=== PATIENT | female | born 1985 | race African-American/Black ===

== ENCOUNTER 2016-06-04 19:38 | Emergency (ER) | payer BC, OTHER ==
[~2016-06-04] VITALS: Ht 167.6 cm; Wt 113.6 kg
[~2016-06-04 19:38] MED LIST: ATIVAN 0.50.5 MG/TAB PO; CELEXA 20MG20 MG/TAB PO; DEPRESSION MED; DESYREL 100MG100 MG PO; INDERAL 10MG10 MG PO; KLONOPIN 0.5MG0.5 MG PO; LORTAB 5/500 501 TAB PO; MOTRIN 600600 MG/TAB PO; NASONEX SPRAY17 GM NS; NORCO 325 MG-51 TAB PO; PRENATAL; VALTREX 50500 MG/TAB PO; ZANTAC 150MG T150 MG PO
[2016-06-04 19:41] VITALS: TEMP 98.2
[2016-06-04] MEDS ORDERED: JUNEL 1.5 MG-31 EACH PO (19:44)
[2016-06-04] MEDS ORDERED: ZOLOFT 100MG100 MG PO (19:45)
[2016-06-04] MEDS ORDERED: KLONOPIN 1MG1 MG PO (19:45)
[2016-06-04] MEDS ORDERED: VALTREX 50500 MG/TAB PO (19:45)
[2016-06-04] MEDS ORDERED: ZOFRAN8 MG PO (20:14)
[2016-06-04 20:20] VITALS: BP 131/87; PULSE 104
== END 2016-06-04 20:20 | disposition home or self-care (01) ==
LOC: COL.ER 19:38
DX: R10.13 Epigastric pain (principal); R11.10 Vomiting, unspecified; R19.7 Diarrhea, unspecified

== ENCOUNTER 2016-06-20 16:12 | Emergency (ER) | payer BC, OTHER ==
[~2016-06-20] VITALS: Ht 167.6 cm; Wt 113.6 kg
[~2016-06-20 16:12] MED LIST changes: +JUNEL 1.5 MG-31 EACH PO; +KLONOPIN 1MG1 MG PO; +ZOFRAN8 MG PO; +ZOLOFT 100MG100 MG PO
[2016-06-20 16:16] VITALS: TEMP 98.7
[2016-06-20] MEDS ORDERED: AMOXICILLIN 8751 TAB PO (17:05)
[2016-06-20 17:14] VITALS: BP 130/89; PULSE 98
[2016-06-20 17:16] LABS: INFLUENZA B NEGATIVE
== END 2016-06-20 17:15 | disposition home or self-care (01) ==
LOC: COL.ER 16:12
PROVIDERS: Family Medicine
DX: J32.0 Chronic maxillary sinusitis (principal); J40 Bronchitis, not specified as acute or chronic; B95.5 Unspecified streptococcus as the cause of diseases classified elsewhere; F17.210 Nicotine dependence, cigarettes, uncomplicated

== ENCOUNTER 2016-12-15 05:19 | Emergency (ER) | payer OTHER ==
[~2016-12-15] VITALS: Ht 167.6 cm; Wt 106.8 kg
[~2016-12-15 05:19] MED LIST changes: +AMOXICILLIN 8751 TAB PO
[2016-12-15 05:24] VITALS: BP 124/84; TEMP 98.5
[2016-12-15 06:21] VITALS: PULSE 84
== END 2016-12-15 06:22 | disposition home or self-care (01) ==
LOC: COL.ER 05:19
DX: J03.90 Acute tonsillitis, unspecified (principal)
CPT/HCPCS: J8540

== ENCOUNTER 2017-08-14 11:25 | Emergency (ER) | payer SELFPAY ==
[~2017-08-14] VITALS: Ht 167.6 cm; Wt 106.8 kg
[2017-08-14 11:28] VITALS: BP 115/76; TEMP 98.2
[2017-08-14] MEDS ORDERED: CELEXA40 MG PO (11:31)
[2017-08-14] MEDS ORDERED: AMOXICILLIN 50500 MG PO (11:49)
[2017-08-14] MEDS ORDERED: NORCO 325 MG-7.1 TAB PO (11:50)
[2017-08-14 11:58] VITALS: PULSE 58
== END 2017-08-14 11:58 | disposition home or self-care (01) ==
LOC: COL.ER 11:25
DX: K08.89 Other specified disorders of teeth and supporting structures (principal); F17.210 Nicotine dependence, cigarettes, uncomplicated; Z98.890 Other specified postprocedural states

== ENCOUNTER 2017-08-21 07:54 | Emergency (ER) | payer SELFPAY ==
[~2017-08-21] VITALS: Ht 167.6 cm; Wt 111.4 kg
[~2017-08-21 07:54] MED LIST changes: +AMOXICILLIN 50500 MG PO; +CELEXA40 MG PO; +NORCO 325 MG-7.1 TAB PO
[2017-08-21 08:11] VITALS: BP 127/83; PULSE 70; TEMP 98.7
[2017-08-21] MEDS ORDERED: NORCO 325 MG-51 TAB PO (08:36)
[2017-08-21] MEDS ORDERED: CLEOCIN HC150 MG/CAP PO (08:36)
== END 2017-08-21 08:52 | disposition home or self-care (01) ==
LOC: COL.ER 07:54
DX: K02.9 Dental caries, unspecified (principal); F17.210 Nicotine dependence, cigarettes, uncomplicated; Z88.5 Allergy status to narcotic agent

== ENCOUNTER 2017-11-27 09:58 | Emergency (ER) | payer OTHER ==
[~2017-11-27] VITALS: Ht 167.6 cm; Wt 104.5 kg
[~2017-11-27 09:58] MED LIST changes: +CLEOCIN HC150 MG/CAP PO
[2017-11-27 10:01] VITALS: BP 116/68; TEMP 98.1
[2017-11-27] MEDS ORDERED: ULTRAM 50MG TAB50 MG PO (10:25)
[2017-11-27 10:32] VITALS: PULSE 63
== END 2017-11-27 10:30 | disposition home or self-care (01) ==
LOC: COL.ER 09:58
DX: S02.5XXA Fracture of tooth (traumatic), initial encounter for closed fracture (principal); F17.210 Nicotine dependence, cigarettes, uncomplicated; X58.XXXA Exposure to other specified factors, initial encounter

== ENCOUNTER 2018-05-25 12:06 | Emergency (ER) | payer OTHER ==
[~2018-05-25] VITALS: Ht 167.6 cm; Wt 113.6 kg
[~2018-05-25 12:06] MED LIST changes: +ULTRAM 50MG TAB50 MG PO
[2018-05-25 12:27] VITALS: BP 118/56; PULSE 72; TEMP 98.5
[2018-05-25] MEDS ORDERED: AMOXICILLIN 8751 TAB PO (12:52)
[2018-05-25] MEDS ORDERED: NORCO 325 MG-51 TAB PO (12:52)
== END 2018-05-25 13:45 | disposition home or self-care (01) ==
LOC: COL.ER 12:06
DX: M27.2 Inflammatory conditions of jaws (principal); F41.9 Anxiety disorder, unspecified; F32.9 Major depressive disorder, single episode, unspecified; F17.210 Nicotine dependence, cigarettes, uncomplicated; Z88.5 Allergy status to narcotic agent

== ENCOUNTER 2018-06-04 17:43 | Emergency (ER) | payer OTHER ==
[~2018-06-04] VITALS: Ht 167.6 cm; Wt 110.5 kg
[2018-06-04 17:49] VITALS: BP 120/95; TEMP 98.5
[2018-06-04] MEDS ORDERED: PREDNISONE20 MG PO (19:31)
[2018-06-04 19:58] VITALS: PULSE 100
== END 2018-06-04 19:59 | disposition home or self-care (01) ==
LOC: COL.ER 17:43
DX: R59.0 Localized enlarged lymph nodes (principal); F17.210 Nicotine dependence, cigarettes, uncomplicated
CPT/HCPCS: J7512

== ENCOUNTER 2019-02-27 10:56 | Emergency (ER) | payer SELFPAY ==
[~2019-02-27] VITALS: Ht 167.6 cm; Wt 118.2 kg
[~2019-02-27 10:56] MED LIST changes: +PREDNISONE20 MG PO
[2019-02-27 10:58] VITALS: BP 131/81; TEMP 98.5
[2019-02-27] MEDS ORDERED: CELEXA 20MG20 MG/TAB PO (11:07)
[2019-02-27] MEDS ORDERED: BIRTH CONTROL (11:08)
[2019-02-27 11:29] LABS: STREP SCREEN NEGATIVE
[2019-02-27] MEDS ORDERED: PREDNISONE20 MG PO (11:38)
[2019-02-27 11:53] VITALS: PULSE 68
== END 2019-02-27 11:53 | disposition home or self-care (01) ==
LOC: COL.ER 10:56
PROVIDERS: Physician Assistant
DX: J35.8 Other chronic diseases of tonsils and adenoids (principal); J03.90 Acute tonsillitis, unspecified; F32.9 Major depressive disorder, single episode, unspecified; F41.9 Anxiety disorder, unspecified; F17.210 Nicotine dependence, cigarettes, uncomplicated
CPT/HCPCS: J7512

== ENCOUNTER 2020-02-14 08:17 | Inpatient (IN) | payer OTHER ==
[~2020-02-14] VITALS: Ht 170.2 cm; Wt 92.3 kg
[2020-02-14] VITALS (19 sets, daily range): BP systolic 90–130; BP diastolic 43–87; PULSE 59–105; TEMP 97.6–99.1
--- NOTE | 2020-02-14 08:15 | NUR ---
Patient ambulates to LR2 with significant other, changed into gown, FHR/TOCO monitors applied. Patient states that her water broke around 0600 and feeling some contractions. Patient has visible clear fluid running down and underwear swabbed at this time and amniotest swab positive when underwear swabbed. Patient denies any vaginal bleeding or decreased movement. Plan of care discussed. 0820: SVE- and amniotest positive with clear/yellow fluid noted. 0830: Dr. Candelaria called and notified and orders to admit for csection. 0840: IV started in left hand per Janina Luna RN, blood obtained and to lab, LR infusing. Assessment and consents completed. Patient prepped for surgery and preop medications given per Stephen Kendall CRNA orders. FHR baseline 130-135bpm and difficulty to trace FHR at times due to maternal position. Monitor adjusted. 0917: Patient ambulates into OR.
[~2020-02-14 08:17] MED LIST changes: +BIRTH CONTROL
[2020-02-14] MEDS ORDERED: VALTREX 50500 MG/TAB PO (08:58)
[2020-02-14] MEDS ORDERED: LEXAPRO20 MG PO (08:58)
[2020-02-14 09:04] LABS: BASO % 0.5 % (0.0-2.0); EOS % 0.5 % (0-4.0); GRAN # 4.6 (1.4-6.5); GRAN % 56.6 % (42.2-75.2); HEMOGLOBIN 12.2 g/dl (12.5-16.0); LYMPH # 2.8 (1.2-3.4); LYMPH % 33.5 % (20.0-51.0); MEAN CELL VOLUME 89 fl (80.0-100.0); MEAN CORPUSCULAR HEMOGLOBIN 30 pg (27.0-31.0); MEAN CORPUSCULAR HGB CONC 34 g/dl (33.0-37.0); MEAN PLATELET VOLUME 10.7 fl (7.4-10.4); MONO # 0.7 (0.1-0.6); MONO % 8.5 % (1.7-9.3); PLATELET COUNT 316 K/mm3 (130-400); RED BLOOD COUNT 4.02 M/mm3 (4.10-5.30); REDCELL DISTRIBUTION WIDTH-CV 14.3 % (11.5-14.5)
[2020-02-14 09:07] LABS: HEMATOCRIT 35.8 % (37.0-47.0)
[2020-02-14 11:09] LABS: TRICYCLIC ANTIDEPRESS URINE NEGATIVE
[2020-02-15] VITALS: BP 123/82; PULSE 71; TEMP 97.8
[2020-02-15 04:15] VITALS: BP 118/71; PULSE 86; TEMP 97.3
[2020-02-15 07:45] VITALS: BP 119/70; PULSE 77; TEMP 97.8
--- NOTE | 2020-02-15 07:45 | NUR ---
Rests in bed, alert. Holds baby, eating breakfast.
[2020-02-15 08:57] LABS: HEMOGLOBIN 10.7 g/dl (12.5-16.0)
[2020-02-15 09:01] LABS: HEMATOCRIT 32.5 % (37.0-47.0)
--- NOTE | 2020-02-15 09:45 | NUR ---
Rests in bed, alert. Ibuprofen 600 mg given as ordered.
--- NOTE | 2020-02-15 14:40 | NUR ---
SW recieved consult about patient having past substance use and high anxiety. SW met with patient in room with FOB with patient permission to talk in front of FOB. FOB present Av [address] [phone]. [address] [place] [address] Patient reports that she was using marijuana to manage anxiety in early october but stopped the use. Patient shares that she was able to get on medications to manage sx. Patient denies ongoing use. Patient reports that she has another child in the home approx 4ys. Patient denies having any concerns. Reports that they have supplies. No safety concerns, SW staffed with nurse and reports appropriateness. Patient's phine number ([phone], SW gave patient resource guide. No additional concerns identified.
[2020-02-15 16:30] VITALS: BP 107/73; PULSE 72; TEMP 98
--- NOTE | 2020-02-15 16:30 | NUR ---
Rests in bed, alert. Ibuprofen 600 mg given as ordered.
[2020-02-15 19:30] VITALS: BP 121/72; PULSE 80; TEMP 98.1
[2020-02-16 08:00] VITALS: BP 128/86; PULSE 77; TEMP 98.2
--- NOTE | 2020-02-16 08:00 | NUR ---
Rests in bed, alert. Eating breakfast. Denies any needs at this time.
[2020-02-16] MEDS ORDERED: MOTRIN 600600 MG/TAB PO (08:27)
[2020-02-16] MEDS ORDERED: NORCO 325 MG-51 TAB PO (08:28)
--- NOTE | 2020-02-16 09:30 | NUR ---
Rests in bed, alert. Ibuprofen 600 mg, norco two given per request and as ordered.
--- NOTE | 2020-02-16 11:24 | NUR ---
Sits up in bed, alert. Discharge instructions given, verbalizes understanding.
== END 2020-02-16 11:45 | disposition home or self-care (01) | DRG 787 ==
LOC: LDRO 08:17 → LDR 08:31 → OB 10:23
PROVIDERS: ADMIT Obstetrics & Gynecology
PROC: 10D00Z1 Extraction of Products of Conception, Low, Open Approach (ICD-10-PCS; principal; 2020-02-14)
DX: O34.211 Maternal care for low transverse scar from previous cesarean delivery (principal); O98.32 Other infections with a predominantly sexual mode of transmission complicating childbirth; A60.09 Herpesviral infection of other urogenital tract; O99.344 Other mental disorders complicating childbirth; F41.9 Anxiety disorder, unspecified; O69.1XX0 Labor and delivery complicated by cord around neck, with compression, not applicable or unspecified; Z3A.39 39 weeks gestation of pregnancy; Z37.0 Single live birth; Z88.5 Allergy status to narcotic agent
CPT/HCPCS: J0690; J2250; J2270; J2370; J2405; J2550; J2765; J2791; J7120

== ENCOUNTER 2022-01-04 16:49 | Emergency (ER) | payer SELFPAY ==
[~2022-01-04] VITALS: Ht 167.6 cm; Wt 113.6 kg
[~2022-01-04 16:49] MED LIST changes: +LEXAPRO20 MG PO
[2022-01-04] MEDS ORDERED: NORCO 325 MG-51 TAB PO ×2 (17:48→17:50)
[2022-01-04] MEDS ORDERED: AMOXICILLIN 50500 MG PO (17:48)
[2022-01-04 17:53] VITALS: BP 125/83; PULSE 72; TEMP 98.4
== END 2022-01-04 17:53 | disposition home or self-care (01) ==
LOC: COL.ER 16:49
DX: K02.9 Dental caries, unspecified (principal); F17.200 Nicotine dependence, unspecified, uncomplicated; Z88.5 Allergy status to narcotic agent; Z28.310 Unvaccinated for COVID-19

== ENCOUNTER 2023-06-26 18:18 | Emergency (ER) | payer SELFPAY ==
[~2023-06-26] VITALS: Ht 167.6 cm; Wt 115.9 kg
[2023-06-26 18:29] VITALS: BP 159/90
[2023-06-26] MEDS ORDERED: Amoxicillin 500 MG CAP PO ONE (19:45)
[2023-06-26] MEDS ORDERED: Home traMADol 50 MG #2 TAB/PACK PO ONE (19:45)
[2023-06-26] MEDS ORDERED: ULTRAM 50MG TAB50 MG PO (19:57)
[2023-06-26 20:15] VITALS: PULSE 65; TEMP 97.5
== END 2023-06-26 20:15 | disposition home or self-care (01) ==
LOC: COL.ER 18:18
DX: K02.9 Dental caries, unspecified (principal); Z87.828 Personal history of other (healed) physical injury and trauma; Z88.5 Allergy status to narcotic agent

== ENCOUNTER 2024-01-20 19:37 | Emergency (ER) | payer SELFPAY ==
[~2024-01-20] VITALS: Ht 167.6 cm; Wt 113.6 kg
[2024-01-20 19:46] VITALS: TEMP 98.3
[2024-01-20] MEDS ORDERED: AMOXICILLIN 8751 TAB PO (20:04)
[2024-01-20] MEDS ORDERED: Home HYDROcodone/Acetaminophen 5/325 MG #4 TABS/PACK PO ONE (20:15)
[2024-01-20] MEDS ORDERED: Amoxicillin/Clavulanate K+ 875/125 MG TAB PO ONE (20:15)
[2024-01-20 20:27] VITALS: BP 135/88; PULSE 80
== END 2024-01-20 20:27 | disposition home or self-care (01) ==
LOC: COL.ER 19:37
DX: K04.7 Periapical abscess without sinus (principal); F17.200 Nicotine dependence, unspecified, uncomplicated